=== PATIENT | female | born 1985 | race Caucasian/White ===

== ENCOUNTER 2019-04-03 05:48 | Day surgery (SDC) | payer BC ==
[2019-04-02 16:53] VITALS: BMI 40.7
[2019-04-03] VITALS (14 sets, daily range): BP systolic 101–120; BP diastolic 54–68; PULSE 74–90; RESP 12–22; Ht 165.1 cm; Wt 115.1 kg
[~2019-04-03] VITALS: Ht 165.1 cm; Wt 115.1 kg
[2019-04-03] MEDS ORDERED: CEFAZOLIN 2 GM/50 ML (PMX) 50 ML IVPB SCH (06:00)
[2019-04-03] MEDS ORDERED: SOD CHLORIDE 0.9% 1,000 ML IV SCH (06:00)
[2019-04-03] MEDS ORDERED: HYDR-4011 PO (07:06)
[2019-04-03] MEDS ORDERED: CEFAZOLIN 1 GM INJ ONE (07:19)
[2019-04-03] MEDS ORDERED: PROPOFOL 20 ML ONE (07:19)
[2019-04-03] MEDS ORDERED: GLYCOPYRROLATE 0.4 MG INJ ONE (07:19)
[2019-04-03] MEDS ORDERED: NEOSTIGMINE 3 MG/3 ML SYRINGE ONE (07:19)
[2019-04-03] MEDS ORDERED: ONDANSETRON 4 MG INJ ONE (07:19)
[2019-04-03] MEDS ORDERED: ROCURONIUM 50 MG INJ ONE (07:19)
[2019-04-03] MEDS ORDERED: FENTAnyl 50 MCG/ML VIAL ONE ×2 (07:19→08:35)
[2019-04-03] MEDS ORDERED: DEXAMETHASONE 4 MG/ML 5 ML INJ ONE (07:19)
[2019-04-03] MEDS ORDERED: MIDAZOLAM 1 MG/ML 2 ML INJ ONE (07:19)
[2019-04-03] MEDS ORDERED: ROPIVACAINE 0.5 % 30 ML VIAL ONE (07:22)
[2019-04-03] MEDS ORDERED: BUPIVACAINE 0.25% (MPF) 30 ML INJ ONE (07:23)
--- NOTE | 2019-04-03 07:37 | PREAC ---
Date/Time of Note Date/Time of Note DATE: 04/03/19 TIME: 07:36 Anesthesia Eval and Record Evaluation Time Pre-Procedure Interview DATE: 04/03/19 TIME: 07:36 Age 33 Sex female NPO: 8 hrs Preoperative diagnosis symptomatic cholelithiasis Planned procedure LAP ALEXANDREA Past Medical History Past Medical History: Includes GI: Morbid obesity Surgery & Anesthesia Issues No known issue Meds Anticoagulation: No Beta Pepe within 24 hr: No Reason Beta Pepe not given: Pt. not on B-Pepe Reported Medications Hydrocodone/Acetaminophen ([place] 5-325 Tablet) 1 Each Tablet, 1 EACH PO Q6 PRN for PAIN, TAB 04/03/19 Current Medications Cefazolin Sodium/ Dextrose 50 ml @ 100 mls/hr ONCE IVPB ; Start 04/03/19 at 06:00; Stop 04/03/19 at 12:00 Sodium Chloride 1,000 ml @ 75 mls/hr [id number] IV ; Start 04/03/19 at 06:00; Stop 04/03/19 at 23:00 Meds reviewed: Yes Allergies Coded Allergies: No Known Allergies (Verified Allergy, Unknown, 04/03/19) Allergies Reviewed: Yes Labs/Studies Labs Reviewed: Reviewed by anesthesiologist Result Diagram: 04/03/19 0650 Laboratory Tests 04/03/19 06:50 test: Negative Pre-procedure Exam Last vitals Vital Signs Date Temp Pulse Resp B/P (MAP) Pulse Ox O2 O2 Flow FiO2 Time Delivery Rate 04/03/19 98.0 77 18 114/58 98 Room Air 07:14 (76) Airway: Adequate mouth opening, Adequate thyromental dist Mallampati: Mallampati II Teeth: Normal Lung: Normal Heart: Normal ASA Physical Status ASA physical status: 3 Emergency: None Planned Anesthetic General/MAC: ETT Nerve block: TAP (right) Planned Pain Management Parenteral pain med Pre-operative Attestations Prior to commencing anesthesia and surgery, the patient was re-evaluated, there was verification of: *The patient's identity *The results of appropriate recent lab work and preoperative vital signs *The above evaluation not changing prior to induction *Anesthetic plan, risk benefits, alternative and complications discussed with patient/family; questions answered; patient/family understands, accepts and wishes to proceed. Dallas Rockwell M.D. Apr 03, 2019 07:37
[2019-04-03] MEDS ORDERED: FENTAnyl 50 MCG/ML VIAL IV PRN ×3 (08:00)
[2019-04-03] MEDS ORDERED: MIDAZOLAM 1 MG/ML 2 ML INJ IV PRN (08:00)
[2019-04-03] MEDS ORDERED: ALBUTEROL 0.083% (NEB) 2.5 MG/3 ML AMP HHN PRN (08:00)
[2019-04-03] MEDS ORDERED: hydrALAzine 20 MG INJ IV PRN (08:00)
[2019-04-03] MEDS ORDERED: IPRATROPIUM (NEB) 0.5 MG/2.5 ML AMP HHN PRN (08:00)
[2019-04-03] MEDS ORDERED: TRIMETHOBENZAMIDE 100 MG/ML VIAL IM PRN (08:00)
[2019-04-03] MEDS ORDERED: LABETALOL HCL 20MG INJ IV PRN (08:00)
[2019-04-03] MEDS ORDERED: MEPERIDINE 25 MG INJ IV PRN (08:00)
[2019-04-03] MEDS ORDERED: OXYCODONE/ACETAMINOPHEN (5/325) TAB PO PRN ×2 (08:00)
[2019-04-03] MEDS ORDERED: ONDANSETRON 4 MG INJ IV PRN (08:00)
[2019-04-03] MEDS ORDERED: DIPHENHYDRAMINE 50 MG INJ IV PRN (08:00)
[2019-04-03] MEDS ORDERED: EPHEDrine 25 MG/5 ML SYG IV PRN (08:00)
[2019-04-03] MEDS ORDERED: HYDROmorphONE 1 MG/5 ML IV SYRINGE IV PRN ×3 (08:00)
[2019-04-03] MEDS ORDERED: SUGAMMADEX SODIUM 200 MG/2 ML VIAL IV ONE (08:25)
[2019-04-03] MEDS ORDERED: KETOROLAC 30 MG INJ ONE (08:34)
[2019-04-03] MEDS ORDERED: FAMOTIDINE 20 MG INJ ONE (08:34)
--- NOTE | 2019-04-03 08:44 | OPR ---
Date/Time of Note Date/Time of Note DATE: 04/03/19 TIME: 08:37 Operative Report Procedure Date: Apr 03, 2019 Preoperative Diagnosis symptomatic gallstones Postoperative Diagnosis same Operation/Procedure Performed laparoscopic cholecystectomy with modifier 22 for complexity of operation and morbid obesity BMI 42.2 Surgeon see signature line [employer] Technician none Anesthesia Type: general Estimated Blood Loss: 0 - 10 ml's Transfusion none Specimen gallbladder Grafts/Implants none Complications none Pt Condition Post Procedure: stable Indications This is a 33-year-old female with symptomatic gallstones. She required surgical excision of her gallbladder. Risks alternatives benefits and personal were discussed the patient. Patient expressed understanding and consents to the operation. Procedure Description Patient is taken to the OR and prepped and draped in usual sterile fashion. Surgical timeout is performed. IV antibiotics were given. Infraumbilical transverse incision is made with a 15 blade. Due to her BMI of 42.2 and increased morbidity modifier 22 should be applied for this operation. Dissection with cautery skin onto the fascia. The fascia was grasped with Ana M's and divided with curved Chen scissors. 0 Vicryl use was placed into the fascia. Granados trocar was introduced. Pneumoperitoneum is established. Midepigastric 12 mm optical trocar was placed under direct visualization. Right upper quadrant and right upper flank 5 mm optical trochars were placed under direct visualization. Some bradycardia was noted and the intra-abdominal pressure was decreased. The settings for insufflation were decreased. This made visualization much more challenging. Due to her morbid obesity a BMI of 42.2 dissection and surgery was difficult and thus created technical difficulty. In this narrow space the gallbladder was grasped with the fundus and retracted and lateral cephalad direction. [place] graspers were used to dissect out the cystic duct and cystic artery. The critical view was established. The cystic duct was divided with 3 clips proximal and 1 clip distal.. Cystic artery was divided with 3 clips proximal and 1 clip distal. Laparoscopic scissors were used to divide the cystic duct and cystic artery. The gallbladder was then meticulously taken off the gallbladder bed. Good hemostasis established in the surgical bed. Suction irrigation was used. The gallbladder was retrieved using an Endo Catch bag. All ports removed under direct visualization. 0 Vicryl use this was tied down. Skin was closed and skin jose. A tap block was provided by the anesthesiologist the beginning of the case. Dry dressings were applied. Ayana YOUNGER Apr 03, 2019 08:44
--- NOTE | 2019-04-03 08:49 | PAC ---
Date/Time of Note Date/Time of Note DATE: 04/03/19 TIME: 08:48 Post-Anesthesia Notes Post-Anesthesia Note Last documented vital signs Vital Signs Date Temp Pulse Resp B/P (MAP) Pulse Ox O2 O2 Flow FiO2 Time Delivery Rate 04/03/19 98.0 77 18 114/58 98 Room Air 07:14 (76) Activity: WNL Respiratory function: WNL Cardiovascular function: WNL Mental status: Baseline Pain reasonably controlled: Yes Hydration appropriate: Yes Nausea/Vomiting absent: Yes Dallas Rockwell M.D. Apr 03, 2019 08:49
[2019-04-03] MEDS ORDERED: HYDROCODONE/APAP (5/325) TAB PO ONE (09:00)
== END 2019-04-03 10:21 | disposition home or self-care (01) ==
LOC: SDS 05:48
PROVIDERS: ATTEND Surgery
DX: K80.10 Calculus of gallbladder with chronic cholecystitis without obstruction (principal); E66.9 Obesity, unspecified; Z68.41 Body mass index [BMI] 40.0-44.9, adult
CPT/HCPCS: 47562; 80053; 85025; 85610; 85730; 88304; J0690; J1100; J1170; J1885; J2175; J2250; J2405; J2710; J2795; J3010; J3250; Z7512; Z7610